=== PATIENT | female | born 1990 | race Two or more races ===

== ENCOUNTER 2018-11-10 16:44 | Emergency (ER) | payer MEDICAID, OTHER ==
[~2018-11-10] VITALS: Ht 157.5 cm; Wt 68.0 kg
[2018-11-10 16:50] VITALS: BP 114/80
[2018-11-10] MEDS ORDERED: LIDOCAINE 2%HCL (LOCAL ANESTH.) INJ 10ml MDV IJ ONE (19:45)
[2018-11-10] MEDS ORDERED: TRIAMCINOLONE 40MG/ML 1ML VIAL IX ONE (19:45)
[2018-11-10] MEDS ORDERED: BACLOFEN 10 MG TAB PO ONE (19:45)
[2018-11-10] MEDS ORDERED: LIDOCAINE 2% (LOCAL ANESTH.) PF 5ml SDV ONE (19:58)
== END 2018-11-10 22:13 | disposition home or self-care (01) ==
LOC: ER 16:48
DX: R51 Headache (principal); M54.2 Cervicalgia
CPT/HCPCS: 20552; 70450; 81025; 99284; J2001; J3301